=== PATIENT | female | born 1965 | race Caucasian/White ===

== ENCOUNTER 2018-10-24 00:34 | Emergency (ER) | payer OTHER ==
[~2018-10-24] VITALS: Ht 152.4 cm; Wt 70.3 kg
--- NOTE | 2018-10-24 00:48 | NUR ---
Patient to ER bed 01 to gown for evaluation. Side rails up.
[2018-10-24 00:50] VITALS: BP_SYST 151
--- NOTE | 2018-10-24 00:52 | NUR ---
Patient AOx4, ambulatory, presents to ER with complaint of right upper abddominal pain 8/10 x few hours. Patient states that on arrival pain 3/10. Patient states burning and urgency with urination. Patient states hx of fatty liver and lupus. Patient states that she is worried that liver condition is worsening. No other symptoms or complaints.
--- NOTE | 2018-10-24 00:54 | NUR ---
ER MD Armendariz at bedside for medical evaluation.
[2018-10-24 01:29] LABS: BASOPHILS # (AUTO) 0.1 K/uL (0.0-0.2); EOSINOPHILS # (AUTO) 0.4 K/uL (0.0-0.4); EOSINOPHILS % (AUTO) 5.2 % (0.0-4.0); HEMOGLOBIN 13.4 g/dL (12.0-16.0); LYMPHOCYTES # (AUTO) 2.2 K/uL (1.0-5.5); LYMPHOCYTES % (AUTO) 32.6 % (20.5-51.5); MEAN CORPUSCULAR HEMOGLOBIN 34 pg (27-31); MEAN CORPUSCULAR HGB CONC 35 % (32-36); MEAN CORPUSCULAR VOLUME 99 fL (79.0-98.0); MONOCYTES # (AUTO) 0.4 K/uL (0.0-1.0); MONOCYTES % (AUTO) 5.8 % (1.7-9.3); NEUTROPHILS # (AUTO) 3.8 K/uL (1.8-7.7); NEUTROPHILS % (AUTO) 55.4 % (40.0-70.0); PLATELET COUNT (AUTO) 311 K/uL (130-430); RED BLOOD CELL COUNT(AUTO) 3.93 MIL/uL (4.2-6.2); RED CELL DISTRIBUTION WIDTH 11.3 % (9.0-15.0); WHITE BLOOD COUNT (AUTO) 6.8 K/uL (4.8-10.8)
[2018-10-24 01:40] LABS: CREATININE 0.69 mg/dL (0.55-1.30); POTASSIUM 4.2 mmol/L (3.5-5.1)
[2018-10-24 01:48] LABS: ALBUMIN 3.7 g/dL (3.4-4.8); TOTAL BILIRUBIN 0.4 mg/dL (0.0-1.0)
[2018-10-24 02:25] LABS: BILIRUBIN,URINE NEGATIVE (NEGATIVE); BLOOD, URINE NEGATIVE (NEGATIVE); CLARITY/URINE CLEAR (CLEAR); COLOR,URINE YELLOW (YELLOW); GLUCOSE,URINE NEGATIVE (NEGATIVE); KETONES,URINE NEGATIVE (NEGATIVE); LEUKOCYTE ESTERASE ,URINE TRACE (NEGATIVE); NITRITE, URINE NEGATIVE (NEGATIVE); PROTEIN URINE TRACE (NEGATIVE); UROBILINOGEN,URINE 0.2 (0.2-1.0)
[2018-10-24 02:44] LABS: BACTERIA,URINE FEW /HPF (None Seen); RBC,URINE 0-3 /HPF (0-3)
[2018-10-24] MEDS ORDERED: CEPHALEXIN 500 MG CAPSULE PO ONE (03:00)
[2018-10-24 03:33] VITALS: BP_SYST 142
--- NOTE | 2018-10-24 03:33 | NUR ---
Patient given written and verbal discharge instructions and verbalizes understanding. ER MD discussed with patient the results and treatment provided. Patient in stable condition. ID arm band removed. IV catheter removed intact and dressing applied, no active bleeding. Rx of Keflex given. Patient educated on pain management and to follow up with PMD. Pain Scale 2/10 tolerable to patient. Opportunity for questions provided and answered. Medication side effect fact sheet provided.
== END 2018-10-24 03:33 | disposition home or self-care (01) ==
LOC: SED 00:34
DX: N39.0 Urinary tract infection, site not specified (principal)
CPT/HCPCS: 36415; 80053; 81000-TC; 83690-TC; 85025; 87086; 99283

== ENCOUNTER 2019-12-10 23:46 | Emergency (ER) | payer OTHER ==
[~2019-12-10] VITALS: Ht 152.4 cm; Wt 69.9 kg
[2019-12-10 23:55] VITALS: BP_SYST 147
--- NOTE | 2019-12-11 00:20 | NUR ---
Patient to ER bed 4 to gown for evaluation. Side rails up.
--- NOTE | 2019-12-11 00:21 | NUR ---
Patient came to ER. C/O epigastric pain x today. Patient states " epigastric pain at 2330 PM, no nausea, vomitting and diarrhea. " Hx Fatty Liver A/O, X4, epigastric pain, pain rate 4/10, no N/V/D, vss.
--- NOTE | 2019-12-11 00:40 | NUR ---
ER Dr. Malik at bedside examining patient.
[2019-12-11] MEDS ORDERED: ASPIRIN 81 MG TAB.CHEW PO ONE (00:45)
[2019-12-11] MEDS ORDERED: FAMOTIDINE 20 MG TABLET PO ONE (00:45)
[2019-12-11] MEDS ORDERED: MORPHINE 4 MG/ML INJ. SYRINGE IVP ONE (00:45)
--- NOTE | 2019-12-11 00:53 | NUR ---
X-ray at bedside.
[2019-12-11 01:30] LABS: BASOPHILS # (AUTO) 0.1 K/uL (0.0-0.2); EOSINOPHILS # (AUTO) 0.2 K/uL (0.0-0.4); EOSINOPHILS % (AUTO) 2.4 % (0.0-4.0); HEMATOCRIT 41.1 % (36-48); HEMOGLOBIN 14.4 g/dL (12.0-16.0); LYMPHOCYTES % (AUTO) 31.4 % (20.5-51.5); MEAN CORPUSCULAR HEMOGLOBIN 35 pg (27-31); MEAN CORPUSCULAR HGB CONC 35 % (32-36); MEAN CORPUSCULAR VOLUME 99 fL (79.0-98.0); MONOCYTES # (AUTO) 0.5 K/uL (0.0-1.0); NEUTROPHILS # (AUTO) 3.8 K/uL (1.8-7.7); NEUTROPHILS % (AUTO) 58.2 % (40.0-70.0); PLATELET COUNT (AUTO) 282 K/uL (130-430); RED BLOOD CELL COUNT(AUTO) 4.16 MIL/uL (4.2-6.2); RED CELL DISTRIBUTION WIDTH 11.9 % (9.0-15.0); WHITE BLOOD COUNT (AUTO) 6.5 K/uL (4.8-10.8)
[2019-12-11 01:38] LABS: CALCIUM 8.8 mg/dL (8.4-11.0); CREATININE 0.78 mg/dL (0.55-1.30); POTASSIUM 3.6 mmol/L (3.5-5.1)
[2019-12-11 01:44] LABS: ALBUMIN 4.3 g/dL (3.4-4.8); TOTAL BILIRUBIN 0.6 mg/dL (0.0-1.0)
--- NOTE | 2019-12-11 05:03 | NUR ---
ER Dr. Malik explained lab results and recommended patient to Follow with PMD.
[2019-12-11 05:45] VITALS: BP_SYST 125
--- NOTE | 2019-12-11 05:45 | NUR ---
Patient given written and verbal discharge instructions and verbalizes understanding. ER MD discussed with patient the results and treatment provided. Patient in stable condition. ID arm band removed. No Rx given. Patient educated on pain management and to follow up with PMD. Pain Scale 0/10. Opportunity for questions provided and answered.
== END 2019-12-11 05:45 | disposition home or self-care (01) ==
LOC: SED 23:46
DX: R07.9 Chest pain, unspecified (principal); R10.13 Epigastric pain
CPT/HCPCS: 36415; 71045; 80053; 83690; 84484; 85025; 85379; 93005; 96372; 99285; J2270; J7030

== ENCOUNTER 2020-07-25 22:52 | Emergency (ER) | payer OTHER ==
[~2020-07-25] VITALS: Ht 152.4 cm; Wt 70.3 kg
[2020-07-25 23:17] VITALS: BP_SYST 146
[2020-07-26 00:38] LABS: BASOPHILS # (AUTO) 0.1 K/uL (0.0-0.2); BASOPHILS % (AUTO) 0.9 % (0.0-2.0); EOSINOPHILS % (AUTO) 0.5 % (0.0-4.0); HEMATOCRIT 34.8 % (36-48); HEMOGLOBIN 12.4 g/dL (12.0-16.0); LYMPHOCYTES # (AUTO) 1.3 K/uL (1.0-5.5); MEAN CORPUSCULAR HEMOGLOBIN 34 pg (27-31); MEAN CORPUSCULAR HGB CONC 36 % (32-36); MEAN CORPUSCULAR VOLUME 95 fL (79.0-98.0); MONOCYTES # (AUTO) 0.4 K/uL (0.0-1.0); MONOCYTES % (AUTO) 4.6 % (1.7-9.3); NEUTROPHILS # (AUTO) 6.9 K/uL (1.8-7.7); PLATELET COUNT (AUTO) 293 K/uL (130-430); RED BLOOD CELL COUNT(AUTO) 3.66 MIL/uL (4.2-6.2); RED CELL DISTRIBUTION WIDTH 11.4 % (9.0-15.0); WHITE BLOOD COUNT (AUTO) 8.7 K/uL (4.8-10.8)
[2020-07-26 01:11] LABS: CALCIUM 8.7 mg/dL (8.4-11.0); CREATININE 0.71 mg/dL (0.55-1.30); POTASSIUM 3.4 mmol/L (3.5-5.1)
[2020-07-26 01:17] LABS: ALBUMIN 3.6 g/dL (3.4-4.8); TOTAL BILIRUBIN 0.6 mg/dL (0.0-1.0)
[2020-07-26] MEDS ORDERED: ONDANSETRON 4 MG ODT TAB PO ONE (02:00)
[2020-07-26] MEDS ORDERED: MAGNESIUM CITRATE 300 ML ORAL SOLUTION PO ONE (03:45)
[2020-07-26 04:01] VITALS: BP_SYST 142
== END 2020-07-26 04:01 | disposition home or self-care (01) ==
LOC: SED 22:52
DX: K59.00 Constipation, unspecified (principal); J18.9 Pneumonia, unspecified organism
CPT/HCPCS: 36415; 71045; 74021; 74176; 76376; 80053; 85025; 99285; Q0162

== ENCOUNTER 2021-08-03 07:20 | Emergency (ER) | payer OTHER ==
[~2021-08-03] VITALS: Ht 152.4 cm; Wt 69.9 kg
[2021-08-03 07:22] VITALS: BP_SYST 185
--- NOTE | 2021-08-03 07:22 | NUR ---
Placed in room 2 . Placed on monitor technician, blood pressure machine and pulse oximeter. To gown for exam. Side rails up. Report given to MADIHA DURAN.
--- NOTE | 2021-08-03 07:35 | NUR ---
ER DR. OSUNA AT THE BEDSIDE EXAMINING PT
[2021-08-03 08:05] LABS: BILIRUBIN,URINE NEGATIVE (NEGATIVE); BLOOD, URINE NEGATIVE (NEGATIVE); CLARITY/URINE CLEAR (CLEAR); COLOR,URINE YELLOW (YELLOW); GLUCOSE,URINE NEGATIVE (NEGATIVE); KETONES,URINE NEGATIVE (NEGATIVE); LEUKOCYTE ESTERASE ,URINE NEGATIVE (NEGATIVE); NITRITE, URINE NEGATIVE (NEGATIVE); PH,URINE 6.5 (5.0-8.0); PROTEIN URINE TRACE (NEGATIVE); UROBILINOGEN,URINE 0.2 (0.2-1.0)
--- NOTE | 2021-08-03 08:09 | NUR ---
urine and blood to lab
[2021-08-03] MEDS ORDERED: ONDANSETRON 4 MG ODT TAB PO ONE (08:15)
[2021-08-03] MEDS ORDERED: KETOROLAC TROMETHAMINE 60 MG/2 ML VIAL IM ONE (08:15)
[2021-08-03 08:22] LABS: BASOPHILS # (AUTO) 0.1 K/uL (0.0-0.2); BASOPHILS % (AUTO) 1.2 % (0.0-2.0); EOSINOPHILS # (AUTO) 0.2 K/uL (0.0-0.4); EOSINOPHILS % (AUTO) 3.5 % (0.0-4.0); HEMATOCRIT 39.3 % (36-48); HEMOGLOBIN 13.5 g/dL (12.0-16.0); LYMPHOCYTES # (AUTO) 1.7 K/uL (1.0-5.5); LYMPHOCYTES % (AUTO) 33.6 % (20.5-51.5); MEAN CORPUSCULAR HEMOGLOBIN 34 pg (27-31); MEAN CORPUSCULAR HGB CONC 35 % (32-36); MEAN CORPUSCULAR VOLUME 98 fL (79.0-98.0); MONOCYTES # (AUTO) 0.3 K/uL (0.0-1.0); MONOCYTES % (AUTO) 5.1 % (1.7-9.3); NEUTROPHILS # (AUTO) 2.8 K/uL (1.8-7.7); NEUTROPHILS % (AUTO) 56.6 % (40.0-70.0); PLATELET COUNT (AUTO) 245 K/uL (130-430); RED BLOOD CELL COUNT(AUTO) 4.03 MIL/uL (4.2-6.2); RED CELL DISTRIBUTION WIDTH 11.5 % (9.0-15.0); WHITE BLOOD COUNT (AUTO) 4.9 K/uL (4.8-10.8)
[2021-08-03 08:33] LABS: ANION GAP 10 (5-15); CALCIUM 8.8 mg/dL (8.4-11.0); CHLORIDE 99 mmol/L (98-107); CREATININE 0.61 mg/dL (0.55-1.30); GLUCOSE 120 mg/dL (70-99); SODIUM SERUM 136 mmol/L (136-145); UREA NITROGEN, BLOOD 17 mg/dL (8-21)
--- NOTE | 2021-08-03 08:35 | NUR ---
pt to ct scan
[2021-08-03 08:42] LABS: ALANINE AMINOTRANSFERASE 56 U/L (12-78); ALBUMIN 3.8 g/dL (3.4-4.8); AMYLASE 50 U/L (0-100); ASPARTATE AMINOTRANSFERASE 24 U/L (10-37); LIPASE 132 U/L (73-393); TOTAL BILIRUBIN 0.3 mg/dL (0.0-1.0)
[2021-08-03 08:48] LABS: GFR AFRICAN AMERICAN 130 mL/min (>90)
[2021-08-03 09:09] LABS: C-REACTIVE PROTEIN QUANT < 0.2 mg/dL (0-0.5)
[2021-08-03] MEDS ORDERED: HYDR-3917 PO (09:21)
[2021-08-03] MEDS ORDERED: IBUP-1969 PO (09:21)
[2021-08-03 09:31] VITALS: BP_SYST 165
--- NOTE | 2021-08-03 09:32 | NUR ---
Patient given written and verbal discharge instructions and verbalizes understanding. YELITZA harrison MD discussed with patient the results and treatment provided. Patient in stable condition. ID arm band removed. Rx of hydrocodone, motrin given. Patient educated on pain management and to follow up with PMD. Pain Scale 2. Opportunity for questions provided and answered. Medication side effect fact sheet provided.
== END 2021-08-03 12:53 | disposition home or self-care (01) ==
LOC: SED 07:20
DX: R10.11 Right upper quadrant pain (principal)
CPT/HCPCS: 36415; 74176; 76376; 80053; 81003; 82150; 83605; 83690; 84484; 84703; 85025; 86140; 96372; 99284; J1885; Q0162